=== PATIENT | female | born 1945 | race Caucasian/White ===

== ENCOUNTER → 2017-05-09 | Outpatient (CLI) | payer OTHER, MEDICARE ==
[~2017-05-09] VITALS: Ht 162.6 cm; Wt 66.2 kg
[~2017-05-09] MED LIST: ADULT LOW DOSE81 MG PO; ALEVE220 MG PO; BISAC-EVAC10 MG RECTAL; CALCIUM 600 +1 EAC1 PO; CENTRUM SILVER1 EAC1 PO; COLACE100 MG PO; CORRECTOL5 M1 PO; COZAAR100 MG PO; CYMBALTA30 MG PO; DEPAKENE250 MG PO; ESTRACE0.5 MG PO; FENTANYL PATCH75 MCG TRANSDERM; FEOSOL45 M1 PO; FISH OIL 1,0001 EAC5 PO; FLEXERIL PO; GABAPENTIN 100100 MG PO; GLUCOSAMINE &1 EACH PO; LIPITOR10 MG PO; LOPRESSOR50 PO; LORTAB OR; MILK OF MA2400 MG/10 PO; MIRALAX17 GM PO; MOBIC15 MG PO; NEURONTIN600 MG PO; OXYCODONE HCL15 MG PO; PROTONIX40 M1 PO; TYLENOL325 MG PO; VALIUM5 MG PO; VITAMIN D1000 UNI1 PO; WELLBUTRIN XL150 M2 PO; ZOFRAN ODT4 MG DISSOLVE
--- NOTE | ~2017-05-09 | HPC ---
[facility] [place] [address] PAIN MANAGEMENT CONSULTATION Name: SHAHEEN KWON Room #: REG [facility].#: [id number] Admission: 05/09/17 Attend Phys: Isaiah Magaña DO Discharge: Date of : 41 Report #: [id number] THIS REPORT FOR: //name// CC: Isaiah Magaña Referring Physician Vicenta Hernandez DATE OF SERVICE: 05/09/2017 CHIEF COMPLAINT: Low back pain, bilateral lower extremity pain and paresthesias. HISTORY OF PRESENT ILLNESS: As you know, the patient is a 71-year-old female who has had a longstanding history of low back pain and bilateral lower extremity pain. She has completed surgery twice at [facility] where the patient was seen in consultation as an inpatient by [facility] where we provide inpatient hospital consultation. She was referred back to our clinic as an outpatient to discuss options for treatment. She has been referred to our clinic describing pain is continuous, steady and constant, describes the pain as burning, aching and nagging, places current pain score 8/10 daily, average at 8/10, worst pain has been is 10/10. The patient states that all activities exacerbate symptoms, nothing appears to improve pain. She has been referred to discuss options for treatment. PAST MEDICAL HISTORY: 1. Hypertension. 2. Multiple emotional problems. 3. Degenerative joint disease. 4. Osteoarthritis. 5. Chronic lumbar radiculopathy. PAST SURGICAL HISTORY: See chart. SOCIAL HISTORY: The patient denies tobacco, IV or illicit drug use. Admits to greater than 2 alcohol beverages per day. She is a . She is not working, not receiving workmen's compensation. She is unaccompanied today. She is brought to our clinic by facility transport. REVIEW OF SYSTEMS: Positive for fatigue, weakness, wearing corrective eyewear, frequent urination, nocturia, incontinence and dribbling to urine, lightheadedness and dizziness, numbness, depression, low back pain, bilateral lower extremity pain, inability go about activities of daily living. All other review of systems negative per 12-point review of systems other than those listed in history of present illness. PAIN IMPACT SCORE: 62/70 indicating near complete interference of daily [facility] [address] [place] [address] PAIN MANAGEMENT CONSULTATION Name: SHAHEEN KWON Room #: REG [facility]..#: [id number] Admission: 05/09/17 Attend Phys: Isaiah Magaña DO Discharge: Date of : 41 Report #: [id number] activities secondary to pain. ALLERGIES: No known drug allergies. CURRENT MEDICATIONS: Gabapentin 100 mg in morning, 100 mg at noon and 600 mg at night; cyclobenzaprine 10 mg 3 times a day p.r.n., fentanyl 75 mcg q.72 hours, oxycodone 15 mg every 4 hours p.r.n. for pain, diazepam 5 mg 3 times a day, cholecalciferol 2000 units per day, duloxetine 30 mg per day, valproic acid 250 mg once a day, ondansetron 4 mg p.r.n., milk of magnesia 30 mL as needed, docusate sodium 100 mg per day, pantoprazole 40 mg per day, atorvastatin 10 mg per day, metoprolol 50 mg per day, multivitamin 1 tab per day, calcium carbonate once a day, Meloxicam 15 mg once a day, and losartan 100 mg per day. IMAGING: No new imaging available. PHYSICAL EXAMINATION: VITAL SIGNS: Blood pressure 136/81, pulse 65, respiratory rate 16 and unlabored, the patient is 98% on room air, height 5 feet 4 inches tall, weight 146 pounds, and BMI calculated 25. GENERAL: Well-developed, well-nourished, well-hydrated 71-year-old female, appears stated age, she is placing current pain score at approximately 8/10. HEENT: Normocephalic, atraumatic. Pupils are equal, round, and reactive to light. Extraocular muscles are intact. Sclerae nonicteric without injection. NEUROLOGIC: Cranial nerves 2-12 are grossly intact. Speech is fluent. The patient deemed a poor historian. LUNGS: Clear. No wheeze, rhonchi, or rales. CARDIOVASCULAR: Regular. No appreciable gallop or rub. ABDOMEN: Soft, obese, normal active bowel sounds. EXTREMITIES: Show no clubbing, no cyanosis, and no edema. MUSCULOSKELETAL: The patient has tenderness to palpation over the lower lumbar spine, well-healed surgical scars. Seated straight leg raising negative. Supine straight leg raising mildly positive. Hilda test negative. Modified Gaenslen's positive for axial low back pain. Gait is antalgic favoring what appears to be left lower extremity over right, though function is pretty well reduced. Muscle bulk and tone equal and symmetrical. Ankle clonus negative. Babinski is negative. ASSESSMENT: 1. Lumbar radiculopathy. 2. Spinal stenosis of the lumbar spine. 3. Displacement of lumbar intervertebral disk with radicular symptoms. 4. Lumbosacral spondylosis with radiculopathy. 5. Chronic intractable pain. PLAN: 1. The patient has been referred to our service to discuss options for [facility] [address] [place] [address] PAIN MANAGEMENT CONSULTATION Name: SHAHEEN KWON Room #: REG [facility]#: [id number] Admission: 05/09/17 Attend Phys: Isaiah Magaña DO Discharge: Date of : 41 Report #: [id number] adjusting medications. She has been treated with epidural injections in the past, these were ineffective at providing pain control. She subsequently underwent 2 different surgeries in a very short period of time, unfortunately even the surgical options did not provide much in the way of benefit. She is now currently at a local rehabilitation facility in [place] and she was referred to our clinic to make suggestions in adjustments in therapy from a medication standpoint. The patient has been moving from physician to physician and has no primary care physician according to the patient today, this complicates the situation. We believe that the patient was referred to our clinic by her orthopedic spine surgeon to provide suggestions for treatment. 2. The patient is not a candidate for epidural injections, she did not receive benefit with epidurals in the past, I do not feel these would be beneficial at this point. This is placing the patient at a great amount of risk and little or no benefit was noted in the previous series of injections, this is not a treatment option I would recommend at this time. 3. We would recommend increasing the patient's gabapentin at 100 mg in morning, 100 mg at noon and 600 mg at night, she can increase to 600 mg t.i.d. for baseline pain control, this will add some benefit from a neuropathic standpoint, this could also be increased further to 600 mg in the morning, 600 mg at noon, 1200 mg at night for 5 nights, then 1200 mg in the morning, 600, and 1200 mg for 5 days, then 200 mg 3 times a day if necessary. I recommend watching for any side effects of somnolence, decrease , disorientation and confusion with the use of the medication. 4. You could increase Cymbalta, currently she is at 30 mg dose, could increase to 60 mg dose for the next 7 days, then to 90 mg dose for 7 days and then to 120 mg dose, this could provide neuropathic pain control. We would watch for side effects. 5. Fentanyl is a good baseline medication, she indicates on our questionnaire that she is on a 75 mcg patch, though I have evaluated the patient and appears to be a 25 mcg patch, this could be increased if necessary to 50 mcg, we will defer to the primary team if they wish to increase this medication. 6. I would strongly suggest if the fentanyl is increased to 50 mcg that the oxycodone is reduced to no more than 5 mg q.4 hours p.r.n., reducing from the 15 mg immediate release, which is known to provide little or no benefit with neuropathic pain. This can be altered by the physician who is in charge of the [facility] [place]. 7. We wish to thank the referring team for the opportunity to see this patient in consultation and provide direction for treatment. We will be returning her care to your capable hands. The patient is not a candidate for interventional treatments and thus medication management as indicated above would be most appropriate treatment option. Again, we wish to thank the opportunity to see this patient in consultation. We will be discharging her back to your services. By: [id number] Isaiah Magaña DO /neha
[2017-05-09 09:15] VITALS: BP 136/81
== END | disposition home or self-care (01) ==
LOC: PAIN 06:56
DX: M51.16 Intervertebral disc disorders with radiculopathy, lumbar region (principal); M54.5 Low back pain; I10 Essential (primary) hypertension; M19.90 Unspecified osteoarthritis, unspecified site; Z79.899 Other long term (current) drug therapy; M47.27 Other spondylosis with radiculopathy, lumbosacral region; G89.29 Other chronic pain; Z90.710 Acquired absence of both cervix and uterus; Z98.890 Other specified postprocedural states; F32.9 Major depressive disorder, single episode, unspecified

== ENCOUNTER → 2020-01-12 | Outpatient (CLI) | payer OTHER, MEDICARE | LOC: SJCVCIMAG 16:00 | DX: M79.604 Pain in right leg (principal); R22.41 Localized swelling, mass and lump, right lower limb ==